=== PATIENT | male | born 1955 | race Caucasian/White ===

== ENCOUNTER 2016-07-27 09:21 | Emergency (ER) | payer BC ==
[~2016-07-27] VITALS: Ht 175.3 cm; Wt 93.0 kg
[~2016-07-27 09:21] MED LIST: PANT40TA3 PO; PROP10TA6 PO
[2016-07-27 09:27] VITALS: Ht 175.3 cm; Wt 93.0 kg
[2016-07-27] MEDS ORDERED: AMOX1TAB10 PO (09:47)
[2016-07-27] MEDS ORDERED: AMOXICILLIN/CLAV 875 MG TAB PO ONE (10:00)
--- NOTE | 2016-07-27 17:26 | ERD ---
ER Documentation Chief Complaint Date/Time DATE: 07/27/16 TIME: 16:53 Chief Complaint TOOTH ABSCESS HPI 61-year-old male complaining once a swelling in his right face since today. Patient stated that he got a piece of meat stuck between his gum and his denture for about 1 day. He removed it yesterday. He is having gum pain as well as pain in his right face. He states that he may have a tooth abscess. Denies fever or chills. Denies shortness of breath. ROS All systems reviewed and are negative except as per history of present illness. Medications Home Meds Active Scripts Amoxicillin/Potassium Clav (Amox-Clav 875-125 mg Tablet) 875-125 mg Tab, 1 TAB PO BID for 7 Days, #14 TAB Prov:SU MUÑOZ NP 07/27/16 Propranolol Hcl* (Propranolol Hcl*) 10 Mg Tablet, 10 MG PO TID for 30 Days, TAB Prov:SCOOBY SANTANA F 12/12/14 Pantoprazole* (Protonix*) 40 Mg Tablet.dr, 40 MG PO BID for 30 Days, TAB Prov:SCOOBY SANTANA F 12/12/14 Allergies Allergies: Coded Allergies: naproxen (Verified Allergy, Unknown, 07/27/16) PMhx/Soc History of Surgery: Yes (rt inguinal hernia repair, tonsilectomy) Anesthesia Reaction: No Hx Neurological Disorder: No Hx Respiratory Disorders: No Hx Cardiac Disorders: No Hx Psychiatric Problems: No Hx Miscellaneous Medical Probl: No Hx Alcohol Use: Yes (10 beers/day) Hx Substance Use: No Hx Tobacco Use: Yes Smoking Status: Current every day smoker Physical Exam Vitals Vital Signs Date Time Temp Pulse Resp B/P Pulse Ox O2 Delivery O2 Flow Rate FiO2 07/27/16 09:27 98.1 54 19 133/73 99 Physical Exam General: Well-developed, well-nourished, conscious and coherent, in no distress Skin: Warm and dry without rash, good texture and turgor Head: Normocephalic without evidence of trauma Eyes: Sclera and conjunctivae normal; pupils equal, round, and reactive to light; extraocular movements are intact Nose/Face: Right face erythematous and swollen, without induration. Mouth/throat: Mucous membranes are moist. Posterior pharynx clear without erythema or exudates. Few teeth remaining in the upper, gumline tenderness noted at approximately right upper premolar. Neck: Supple without meningismus or adenopathy. Carotids are equal. Trachea midline. No bruits or JVD Chest: Normal AP diameter. Good expansion without retractions. Nontender. Lungs are clear to auscultate bilaterally with good tidal volume Heart: Regular rate and rhythm. No murmur, rub, or gallops heard Extremities: Full range of motion. Good strength bilaterally. No clubbing, cyanosis, or edema. Peripheral pulses are intact. Sensation intact Neuro: Alert and oriented 4, GCS 15. Cranial nerves grossly intact. Motor and sensory exams nonfocal. Moves all extremities. Speech clear. Gait normal Results 24 hrs Current Medications Medications (Trade) Dose Ordered Sig/Orlin Route PRN Reason Start Time Stop Time Status Last Admin Dose Admin Amoxicillin/ Clavulanate Potassium (Augmentin) 875 mg ONCE ONCE PO 07/27/16 10:00 07/27/16 10:01 DC 07/27/16 10:04 Procedures/MDM Well-appearing 61-year-old male presented ED was right facial cellulitis. Patient is afebrile, I doubt systemic infection. I doubt necrotizing fasciitis. Patient given prescription of Augmentin, and advised to follow-up with his dentist. Patient appears well, stable for discharge and outpatient management. Medical decision making shared with patient and family. Education provided to patient and family. Patient and family expressed understanding of the plan. Medications on discharge: Augmentin. Follow-up: Primary care provider in 2-3 days or return to ED if worse. Departure Diagnosis: Primary Impression: Facial cellulitis Condition: Good Patient Instructions: Cellulitis, Facial Referrals: [facility] YOU HAVE RECEIVED A MEDICAL SCREENING EXAM AND THE RESULTS INDICATE THAT YOU DO NOT HAVE A CONDITION THAT REQUIRES URGENT TREATMENT IN THE EMERGENCY DEPARTMENT. FURTHER EVALUATION AND TREATMENT OF YOUR CONDITION CAN WAIT UNTIL YOU ARE SEEN IN YOUR DOCTORS OFFICE WITHIN THE NEXT 1-2 DAYS. IT IS YOUR RESPONSIBILITY TO MAKE AN APPOINTMENT FOR FOLOW-UP CARE. IF YOU HAVE A PRIMARY DOCTOR --you should call your primary doctor and schedule an appointment IF YOU DO NOT HAVE A PRIMARY DOCTOR YOU CAN CALL OUR PHYSICIAN REFERRAL HOTLINE AT IF YOU CAN NOT AFFORD TO SEE A PHYSICIAN YOU CAN CHOSE FROM THE FOLLOWING [facility] [id number] [facility] [address] [facility] [address] [facility] [address] [facility] [place] [address] [facility]. [facility] [address] [facility] D[facility] ([facility] walk in clinic) Additional Instructions: Follow up with your dentist SU MUÑOZ NP Jul 27, 2016 17:09
== END 2016-07-27 09:53 | disposition home or self-care (01) ==
LOC: FTE 09:21
DX: L03.211 Cellulitis of face (principal); F17.210 Nicotine dependence, cigarettes, uncomplicated
CPT/HCPCS: 99283